=== PATIENT | male | born 1995 | race Caucasian/White ===

== ENCOUNTER 2021-06-08 08:39 | Outpatient (REF) | payer OTHER, SELFPAY ==
--- NOTE | ~2021-06-08 | US_ITS ---
EXAMINATION: US RETROPERITONEAL LIMITED (RENAL ONLY) CLINICAL INFORMATION: Calculus of kidneys. COMPARISON: Renal ultrasound 01/09/2020 TECHNIQUE: Real-time imaging of the kidneys. FINDINGS: RIGHT KIDNEY: 10.0 x 3.9 x 5.3 cm (SAG x AP x TRV). The kidney is normal in size, contour, and echogenicity. Renal cortical thickness is normal. There are 3 stones, measuring 4 x 4 x 7 mm in the upper pole, 5 mm in the midpole and 5 mm in the lower pole. No focal parenchymal lesions or hydronephrosis. LEFT KIDNEY: 10.4 x 4.9 x 6.5 cm (SAG x AP x TRV). The kidney is normal in size, contour, and echogenicity. Renal cortical thickness is normal. There are 2 stones measuring 3 mm in the upper pole and 5 mm in the midpole. No focal parenchymal lesions or hydronephrosis. US/US renal BI IMPRESSION: Bilateral renal stones.
[2021-06-08 11:42] LABS: MANUAL DIFF FLAG NO
[2021-06-08 12:01] LABS: Basophils Percent Auto 0.6 % (0-2); Eosinophils Absolute Auto 0.3 X10*3/uL (0.0-0.4); Eosinophils Percent Auto 4.7 % (0-4); Hematocrit 46.2 % (42.0-52.0); Hemoglobin 15.8 g/dl (14.0-18.0); Imm Gran Abs Auto 0.02 X10*3/uL (0.00-0.03); Imm Gran Pct Auto 0.3 % (0.0-0.4); Lymphocytes Absolute Auto 1.7 X10*3/uL (1.2-4.9); Lymphocytes Percent Auto 27.4 % (20-40); Mean Corpuscular HGB Conc 34.2 g/dl (31.0-36.0); Mean Corpuscular Hemoglobin 32.8 pg (27.0-33.0); Mean Corpuscular Volume 95.9 fL (80.0-98.0); Mean Platelet Volume 9.4 fL (9.4-12.4); Monocytes Absolute Auto 0.5 X10*3/uL (0.1-1.2); Monocytes Percent Auto 7.4 % (2-11); Neutrophils Absolute Auto 3.8 x10*3/uL (2.0-8.3); Neutrophils Percent Auto 59.6 % (45-73); Platelet Count 293 X10*3/uL (160-400); Red Blood Count 4.82 X10*6/uL (4.60-5.80); Red Cell Distribution Width 12.3 % (11.0-16.0); White Blood Count 6.4 X10*3/uL (4.8-10.8)
[2021-06-08 12:28] LABS: Thyroid Stimulating Hormone 0.93 uIU/mL (0.32-4.0)
[2021-06-08 12:34] LABS: Alanine Aminotransferase 16 U/L (0-40); Albumin Level 4.6 g/dL (3.5-5.0); Alkaline Phosphatase 44 U/L (39-117); Anion Gap 14 (12-20); Aspartate Amino Transferase 17 U/L (5-37); Bilirubin Total 0.8 mg/dL (0.0-1.0); Blood Urea Nitrogen 15 mg/dL (9-16); Calcium 9.7 mg/dL (8.4-10.2); Carbon Dioxide 24 mmol/L (22-29); Chloride 108 mmol/L (96-108); Cholesterol 149 mg/dL; Estimated Glomerular Filt Rate > 60; Glucose Random 89 mg/dL (60-115); HDL Cholesterol 45 mg/dL; LDL Cholesterol Calculated 87 mg/dl; Potassium 4.8 mmol/L (3.3-5.1); Sodium 141 mmol/L (135-145); Total Protein 7.2 g/dL (6.5-8.0); Triglycerides 86 mg/dL
[2021-06-08 12:55] LABS: Folate 9.7 ng/mL (> or = 4.0); Vitamin B12 409 pg/mL (200-900)
== END 2021-06-08 08:40 | disposition home or self-care (01) ==
LOC: HO.HMGCX 08:39
PROVIDERS: PCP Internal Medicine; Visit Provider Internal Medicine
DX: R11.2 Nausea with vomiting, unspecified (principal); R68.81 Early satiety
CPT/HCPCS: 36415; 76775; 80053; 80061; 82607; 82746; 84439; 84443; 85025

== ENCOUNTER → 2021-09-03 10:02 | Outpatient (BNVA) | payer OTHER, SELFPAY | PROVIDERS: PCP Internal Medicine | DX: N20.0 Calculus of kidney (principal) | CPT/HCPCS: 99202 ==

== ENCOUNTER 2021-11-23 08:54 | Outpatient (REF) | payer OTHER, SELFPAY ==
--- NOTE | ~2021-11-23 | US_ITS ---
EXAMINATION: US RETROPERITONEAL LIMITED (RENAL ONLY) CLINICAL INFORMATION: Calculus of kidney. COMPARISON: Renal ultrasound 06/08/2021, renal ultrasound 01/09/2020 TECHNIQUE: Real-time imaging of the kidneys. FINDINGS: RIGHT KIDNEY: 10.3 x 4.7 x 5.7 cm (SAG x AP x TRV). The kidney is normal in size, contour, and echogenicity. Renal cortical thickness is normal. No focal parenchymal lesions or hydronephrosis. Nonobstructing right renal stones not significantly changed from prior measuring up to 0.8 cm, previously 0.7 cm in the upper pole. LEFT KIDNEY: 11.3 x 4.5 x 6.5 cm (SAG x AP x TRV). The kidney is normal in size, contour, and echogenicity. Renal cortical thickness is normal. No focal parenchymal lesions or hydronephrosis. Nonobstructing renal stones which appear increased in number compared to prior now with 2 new 0.3 cm stones, the largest stone seen measuring up to 0.5 cm, previously 0.6 cm. US/US renal BI IMPRESSION: Bilateral nonobstructing renal stones which on the right appears similar to prior measuring up to 0.9 cm and on the left appear increased in number with 2 new nonobstructing stones measuring 0.3 cm, and the largest renal stone measuring 0.5 cm.
== END 2021-11-23 08:55 | disposition home or self-care (01) ==
LOC: HO.HMGCX 08:54
PROVIDERS: PCP Internal Medicine; Visit Provider Internal Medicine
DX: N20.0 Calculus of kidney (principal)
CPT/HCPCS: 76775

== ENCOUNTER → 2021-12-01 08:52 | Outpatient (BNVA) | payer OTHER, SELFPAY | PROVIDERS: PCP Internal Medicine | DX: Z13.89 Encounter for screening for other disorder (principal) ==

== ENCOUNTER → 2022-01-21 12:03 | Outpatient (BNVA) | payer OTHER, SELFPAY | PROVIDERS: PCP Internal Medicine; Visit Provider Urology | DX: N20.0 Calculus of kidney (principal) | CPT/HCPCS: 99212 ==

== ENCOUNTER 2022-02-01 07:49 | Day surgery (SDC) | payer OTHER, SELFPAY ==
[2022-01-26 13:12] VITALS: BMI 30.4
--- NOTE | 2022-01-29 12:21 | HO.ANESPROP2 ---
Documented by User: Rebekah Payton NP 01/29/22 12:21 HPI - Anesthesia Eval Consult details Narrative: 26yo M for Right Cystoscopy, Ureteroroscopy, Retro, Laser possible stent PMFSH Active Problems Active Problems: All Active Problems (Updated 06/08/21 @ 19:35 by Godwin Pisano MD) Rectal bleed (Acute) Annual physical exam (Acute) Obesity (BMI 30-39.9) (Acute) Bilateral renal stones (Acute) Past Medical History Medical History Bilateral renal stones Epididymal cyst Obesity (BMI 30-39.9) Polysubstance abuse Family History Family History Maternal Grandmother Cholangiocarcinoma Surgical History Surgical History H/O hand surgery History of tonsillectomy and adenoidectomy Social History Social History (Updated 01/26/22 @ 13:11 by Azra Fischer RN) Housing: Apartment Alcohol intake: current Patient Tobacco Use Status: Former Tobacco user Quit Date: 2017 e-Cigarette/Vaping Use: Never Used Second Hand Smoke Exposure: Yes Substance Use Type Other:: last was hs Substance Use Frequency: Chronic Longstanding Are you DNR?: No Advance Directives: No Advance Directives Information Provided: Yes Advance Directives on File: No Nutrition Risks: No Nutritional Risk Current occupational status: employed Meds Allergies Allergy/AdvReac Type Severity Reaction Status Date / Time No Known Allergies Allergy Verified 02/01/22 08:42 Home Medications Medication Instructions Recorded Confirmed Last Taken Type acetaminophen 325 mg capsule 325 mg PO QID PRN Pain 05/12/21 01/26/22 Unknown History naproxen sodium 220 mg tablet 220 mg PO BID PRN Pain 05/12/21 01/26/22 Unknown History (Aleve) Exam Exam Date and Time: January 29, 2022 122 Height,Weight and Vital Signs: Height 5 ft 7 in Weight 87.997 kg Assessment and Plan Assessment Anesthesia Assessment: Chart Reviewed Documented by User: Ron Vasquez MD 02/01/22 10:43 PMFSH Past Medical History Medical History Bilateral renal stones Epididymal cyst Obesity (BMI 30-39.9) Polysubstance abuse Family History Family History Maternal Grandmother Cholangiocarcinoma Family history of problems with anesthesia: No Surgical History Surgical History H/O hand surgery History of tonsillectomy and adenoidectomy History of Problems with Anesthesia: No Social History Social History (Updated 01/26/22 @ 13:11 by Azra Fischer RN) Housing: Apartment Alcohol intake: current Patient Tobacco Use Status: Former Tobacco user Quit Date: 2017 e-Cigarette/Vaping Use: Never Used Second Hand Smoke Exposure: Yes Substance Use Type Other:: last was hs Substance Use Frequency: Chronic Longstanding Are you DNR?: No Advance Directives: No Advance Directives Information Provided: Yes Advance Directives on File: No Nutrition Risks: No Nutritional Risk Current occupational status: employed Meds Allergies Allergy/AdvReac Type Severity Reaction Status Date / Time No Known Allergies Allergy Verified 02/01/22 08:42 Home Medications Medication Instructions Recorded Confirmed Last Taken Type acetaminophen 325 mg capsule 325 mg PO QID PRN Pain 05/12/21 01/26/22 Unknown History naproxen sodium 220 mg tablet 220 mg PO BID PRN Pain 05/12/21 01/26/22 Unknown History (Aleve) Exam Airway Mallampati Class: III TM Dist: >3cm Neck ROM: Full Loose/Missing/Broken Teeth: Yes Heart: rrr Lungs: clear Assessment and Plan Final Anesthetic Review Family History of Problems with Anesthesia: No History of Problems with Anesthesia: No NPO: Yes ASA Class: II Final Preanesthetic Review: No Changes in Pt Med Stat, Meds/Allgs Chart Reviewed, Consent Obtained/Reviewed and Anes Risks/Benef Reviewed Patient Risk: Intermediate Procedure Risk: Low Anesthetic Plan Anesthetic Plan: GA Disposition: Standard PACU
[2022-02-01] VITALS (7 sets, daily range): BP systolic 109–145; BP diastolic 55–77; PULSE 48–57; RESP 11–18; TEMP 36.1–36.6; O2SAT 99–100
--- NOTE | ~2022-02-01 | FL_ITS ---
EXAMINATION: XR FLUOROSCOPY WITH IMAGES CLINICAL INFORMATION: Right kidney stone COMPARISON: November 23, 2021 ultrasound TECHNIQUE: Fluoroscopy performed by Dr. Owen. Fluoroscopy time: 20.1 seconds. Cumulative Dose: 6.23 mGy. Images: 2. FINDINGS: 2 images demonstrate a right ureteral stent in place. FL/FL guidance in OR IMPRESSION: Fluoroscopy for urologic procedure.
[2022-02-01] MEDS: Lactated Ringers 1,000 ML 100 ML IVCONT (09:29)
[2022-02-01] MEDS: levoFLOXacin 500 MG TABLET PO (09:58)
[2022-02-01] MEDS: Acetaminophen 325 MG TABLET 650 MG PO (09:58)
--- NOTE | 2022-02-01 10:33 | MHC.SHP ---
Pre-Procedural Eval Section A Date of Service: 02/01/22 The patient is an INPATIENT: No Changes since office visit: No Cold of Flu in the past 2 weeks, No New Medical Problems, No Changes in Medication and No Patient answered all questions The History & Physical has been completed within 30 days and I have reviewed it.: Yes Section B Chief Complaint: kidney stone Details of Present Illness: cystoscopy, right retrograde, right ureteroscopy with laser lithotripsy and stent placement Allergies: Allergies Allergy/AdvReac Type Severity Reaction Status Date / Time No Known Allergies Allergy Verified 02/01/22 08:42 Review of Systems Sugical H&P ROS: Negative: Constitution, Cardiovascular, Respiratory, Neurological, Psychiatric, Hem-Onc, Allergic/Immunologic, Gastrointestinal, Genitourinary, Musculoskeletal, Integumentary, Endocrine and Eyes/Ears/Nose/Throat Exam Surgical H&P Exam: Normal: HEENT, Normal: Heart, Normal: Lungs, Normal: Extremities, Normal: Abdomen, Normal: Skin and Normal: Neurological Plan Diagnosis/Plan: Unchanged ( right side) I have reviewed the history and physical and performed a pertinent physical examination on my patient. No changes have occurred unless specified.
[2022-02-01 10:39] LABS: Amphetamine Screen Urine Not Detected (Not Detect); Barbiturates, Urine Not Detected (Not Detect); Benzodiazepines Screen Urine Not Detected (Not Detect); Cannabinoid Screen Urine POSITIVE (Not Detect); Cocaine Screen Urine Not Detected (Not Detect); Fentanyl, urine Not Detected (Not Detect); Opiate Screen Urine Not Detected (Not Detect); Phencyclidine Screen Urine Not Detected (Not Detect)
--- NOTE | 2022-02-01 11:37 | P.OP_ITS ---
Operative Note Operative Note Date of Service: 02/01/22 Narrative: PreOperative Diagnosis: right renal stones Post Operative Diagnosis: right renal stones Procedure: - cystoscopy, right retrograde - right dilatation of ureteric orifice under fluoroscopy - right ureteroscopy, laser lithotripsy, stone basketing - multiple stones on each calyx. Approximately 5 locations. - right stent placement Surgeon: Dr Jose Owen Anesthesia: General Indications for procedure: persistent pain right side with right renal stones on imaging Procedure: After informed consent was verified patient was brought to the operating placed in supine position. Anesthesia was administered per protocol. Patient was placed in modified dorsal lithotomy position and prepped and draped in a sterile fashion. Safety pause time-out and side of surgery confirmed. Antibiotics confirmed. 22 Japanese cystoscope was inserted per urethra. Bladder was normal in its entirety. Both ureteric orifices were in normal position. The right ureteric orifice was cannulated and a retrograde examination was performed. No stone seen. A Sensor guidewire was placed up to the level of the renal pelvis under fluoroscopy. The rigid cystoscope was removed and the inner cannula of ureteric access sheath was used under fluoroscopy to dilate the ureteric orifice. The ureteric access sheath was placed and the inner cannula with access wire removed. The digital flexible ureteral scope was placed. Stones were found in every calcyx on the mucosal surfaces. using a 1.9 Japanese 0 tip basket stones removed from each calyceal apex. These are sent for analysis. We then used the 272 micron laser fiber to break stone remnants on each surface. When this was completed Renal pelvis was irrigated. A 6 Japanese by Twenty-six cm double-J stent was placed into the renal pelvis and bladder under a combination of fluoroscopy and direct visualization using a backloaded cystoscopy. The bladder was emptied. The patient tolerated the procedure well and was extubated in the operating room, and transferred in stable condition to the recovery area. Pathology: Stones Drains: drain
[2022-02-01] MEDS: Phenazopyridine HCL 100 MG TABLET PO (12:07)
[2022-02-06 21:11] LABS: Stone Source KIDNEY STONE
== END 2022-02-01 12:50 | disposition home or self-care (01) ==
PROVIDERS: Nurse Practitioner; PCP Internal Medicine; Visit Provider Urology
PROC: (CPT 52356; principal; 2022-02-01 09:50)
DX: N20.0 Calculus of kidney (principal); Z87.442 Personal history of urinary calculi; N50.3 Cyst of epididymis; E66.9 Obesity, unspecified; F19.10 Other psychoactive substance abuse, uncomplicated; Z79.1 Long term (current) use of non-steroidal anti-inflammatories (NSAID); Z79.899 Other long term (current) drug therapy; Z87.891 Personal history of nicotine dependence
CPT/HCPCS: 52356; 52352; 80307; 82365; 88300; C1758; C1769; C1894; C2617; J1100; J2250; J2405; J3010; Q9967

== ENCOUNTER → 2022-02-09 10:02 | Outpatient (BNVA) | payer OTHER, SELFPAY | PROVIDERS: PCP Internal Medicine; Visit Provider Urology | DX: N20.0 Calculus of kidney (principal) | CPT/HCPCS: 52310; 99212 ==

== ENCOUNTER → 2022-03-09 13:52 | Outpatient (BNVA) | payer OTHER, SELFPAY | PROVIDERS: PCP Internal Medicine; Referring Provider Internal Medicine; Visit Provider Internal Medicine | DX: K62.5 Hemorrhage of anus and rectum (principal); K60.2 Anal fissure, unspecified | CPT/HCPCS: 46600; 99202 ==

== ENCOUNTER 2022-04-12 08:57 | Outpatient (REF) | payer OTHER, SELFPAY ==
--- NOTE | ~2022-04-12 | US_ITS ---
EXAMINATION: US RETROPERITONEAL LIMITED (RENAL ONLY) CLINICAL INFORMATION: Calculus of kidney. COMPARISON: Ultrasound retroperitoneal limited (renal only) 11/23/2021 and 06/08/2021. TECHNIQUE: Real-time imaging of the kidneys. FINDINGS: RIGHT KIDNEY: 10.2 x 4.4 x 6.0 cm (SAG x AP x TRV). The kidney is normal in size, contour, and echogenicity. Renal cortical thickness is normal. No focal parenchymal lesions or hydronephrosis. There are 3 echogenic stones. Lower pole echogenic stones measure 0.2 x 0.2 x 0.2 cm and 0.3 x 0.2 x 0.2 cm and midpole stone measures 0.3 x 0.2 x 0.37. There is no caliectasis. LEFT KIDNEY: 11.3 x 4.9 x 6.2 cm (SAG x AP x TRV). The kidney is normal in size, contour, and echogenicity. Renal cortical thickness is normal. No focal parenchymal lesions or hydronephrosis. There are at least 4 echogenic stones. There are 3 upper pole echogenic stones measuring 0.3 x 0.3 x 0.3 cm, 0.3 x 0.3 x 0.3 cm and 0.4 x 0.3 x 0.4 cm and a midpole echogenic stone measures 0.4 x 0.3 x 0.4 cm. There is no caliectasis. US/US renal BI IMPRESSION: Nonobstructive bilateral echogenic stones. No caliectasis or hydronephrosis.
== END 2022-04-12 08:58 | disposition home or self-care (01) ==
LOC: HO.HMGCX 08:57
PROVIDERS: PCP Internal Medicine; Visit Provider Internal Medicine
DX: N20.0 Calculus of kidney (principal)
CPT/HCPCS: 76775

== ENCOUNTER → 2022-05-11 10:58 | Outpatient (BNVA) | payer OTHER, SELFPAY | PROVIDERS: PCP Internal Medicine; Visit Provider Urology | DX: N20.0 Calculus of kidney (principal) | CPT/HCPCS: 99212 ==

== ENCOUNTER 2022-12-25 09:50 | Emergency (ER) | payer OTHER, SELFPAY ==
--- NOTE | ~2022-12-25 | XR_ITS ---
EXAMINATION: XR RIBS, LEFT with chest x-ray CLINICAL INFORMATION: Fall, left-sided chest pain. COMPARISON: None available. TECHNIQUE: 3 views of the left ribs were obtained with marker placed along the left lower ribs.. Chest PA one view FINDINGS: Chest: The lungs are well-expanded and clear. The heart size and pulmonary vascularity is normal. Multiple views of left ribs reveal no visible fracture or bony abnormality. The soft tissues are normal. XR/XR ribs LT min 3V w CXR1V IMPRESSION: 1. Unremarkable chest exam. 2. Unremarkable left rib exam.
[2022-12-25 09:53] VITALS: BP 139/82; PULSE 64; RESP 18; TEMP 35.9; O2SAT 98; BMI 33.4
--- NOTE | 2022-12-25 10:37 | ED.GENADULT ---
HPI - General Adult General Chief complaint: General Medical Stated complaint: ? Right Rib Fx Work Injury 2 Days Ago Time Seen by Provider: 12/25/22 10:00 Source: patient Mode of arrival: ambulatory Limitations: no limitations History of Present Illness HPI narrative: 27 yo male with history of kidney stones here with complaints of left rib pain after a fall at work 3 days ago hitting his left chest wall on a pallet dori. Patient denies hitting his head or loss of consciousness. He reports pain worsened with movement, deep breathing or coughing. No shortness of breath, abdominal pain, vomiting or diarrhea. Related Data Home Medications Medication Instructions Recorded Confirmed acetaminophen 325 mg capsule 325 mg PO QID PRN Pain 05/12/21 05/31/22 Previous Rx's Medication Instructions Recorded lidocaine 4 % topical gel 1 appl topical TID PRN pain 4 03/09/22 weeks #30 grams psyllium husk 3.4 gram/5.4 gram 1 tbsp PO BID 4 weeks #660 grams 03/09/22 oral powder (Metamucil) allopurinol 100 mg tablet 100 mg PO DAILY 90 days #90 tabs 05/11/22 pyridoxine (vitamin B6) 100 mg 100 mg PO DAILY 90 days #90 tabs 05/11/22 tablet Allergies Allergy/AdvReac Type Severity Reaction Status Date / Time No Known Allergies Allergy Verified 12/25/22 09:55 Review of Systems Review of Systems: Yes all other systems are reviewed and are negative Constitutional: Constitutional: Reports no additional constitutional complaints, Denies body ache(s), Denies chills, Denies fever(s), Denies headache(s) and Denies weakness Eyes: Eyes: Reports no additional eye complaints and Denies change in vision ENT: Reports system reviewed and no additional complaints, except as documented, Denies dizziness, Denies headache(s), Denies nasal congestion, Denies nasal discharge and Denies neck pain Cardiovascular: Cardiovascular: Reports no additional cardiovascular complaints, Reports chest pain, Denies leg edema and Denies dyspnea Respiratory: Respiratory: Reports no additional respiratory complaints, Denies cough and Denies dyspnea Gastrointestinal: Gastrointestinal: Reports no additional gastrointestinal complaints, Denies abdominal pain, Denies diarrhea, Denies nausea and Denies vomiting Genitourinary: Genitourinary: Denies urinary incontinence Musculoskeletal: Musculoskeletal: Reports no additional musculoskeletal complaints, Denies back pain, Denies arthralgias, Denies joint swelling, Denies neck pain, Denies numbness and Denies tingling Integumentary/Breasts: Skin/Breast: Reports system reviewed and no additional complaints, except as docu and Denies rash Neurologic: Reports system reviewed and no additional complaints, except as documented, Denies dizziness, Denies headache(s), Denies numbness, Denies tingling and Denies weakness PMF Past Medical History Attestation statement: The following information was validated with the patient. Source: old records reviewed and nursing notes reviewed Medical History Bilateral renal stones Epididymal cyst Obesity (BMI 30-39.9) Polysubstance abuse Surgical History H/O hand surgery History of tonsillectomy and adenoidectomy Family History Family History Maternal Grandmother Cholangiocarcinoma Maternal Grandfather Prostate cancer Paternal Aunt Breast cancer Social History Social History (Updated 05/31/22 @ 09:04 by Godwin Pisano MD) Housing: Apartment Alcohol intake: current Patient Tobacco Use Status: Former Tobacco user Quit Date: 2017 e-Cigarette/Vaping Use: Never Used Second Hand Smoke Exposure: Yes Advance Directives: No Advance Directives Information Provided: No Current occupational status: employed Cognitive needs: No Hearing needs: No Vision needs: No Physical Exam ED Vital Signs: Vital Signs - 24 hr 12/25/22 09:53 Temperature 96.6 F L Pulse Rate 64 Respiratory Rate 18 Blood Pressure 139/82 Pulse Oximetry 98 Oxygen Delivery Method Room Air BMI result Body Mass Index 33.4 Const General: cooperative, healthy appearing, comfortable and no acute distress Orientation/consciousness: patient oriented x3 Limitations: no limitations HENMT Head: Yes normal to inspection Ears: hearing grossly normal bilaterally Eyes General: appearance normal, both eyes and all related structures Pupils: Equal, round and reactive pupils present Chest Other: Tenderness to left anterior chest wall with no crepitus/ecchymosis or deformity Chest palpation & inspection: normal inspection of the chest Resp Effort & Inspection: normal respiratory effort Auscultation: clear to auscultation bilaterally Cardio Rate: regular rate Rhythm: regular rhythm Peripheral pulses: Peripheral pulses 2+ throughout GI Inspection: Yes normal to inspection Palpation (GI): Soft to palpation and nontender General: Yes no CVA tenderness Back/Spine/Pelvis Back: no CVA tenderness Thoracic/Lumbar Spine: thoracic and lumbar spine normal to inspection Skin General skin exam: no rashes or lesions noted Neuro General: patient oriented x3 and moves all extremities Cranial nerves: Yes Equal, round and reactive pupils present Cognition (Neuro): normal cognition Gait exam (Neuro): Normal gait present Extrem General: Yes normal to inspection, Yes no pedal edema and Yes no calf tenderness Course Course Course Narrative: X-ray show no acute fracture. Likely contusion. Recommend supportive care at home. Reviewed worrisome signs and symptoms of when to return to the emergency room. Comfortable plan for discharge home. Medical Decision Making Medical Decision Making [facility] Narrative: 27 yo male here with complaints of left chest wall tenderness afer a fall 3 days ago. LS CTA Abdomen soft/nontender Will check x-rays Differential Diagnosis Differential Diagnoses: The differential diagnosis associated with the presentation includes Fracture, contusion Low concern for pneumothorax or intra-abdominal pathology Independent Interpretation I performed an independent interpretation of an: Plain X-Ray Interpretation: I independetely reviewed x-ray and agree with radiologist's report Radiology Impression Discussion of test interpretation with radiology: I have reviewed the radiologist's reading. Radiologist Impression: [place] [id number] XRay Report Signed Patient: Usman Meadows MR#: [id number] : 1995 Acct:[id number] Age/Sex: 27 / M ADM Date: 12/25/22 Loc: HO.ED Attending Dr: Ordering Physician: Alize Mcghee NP Date of Service: 12/25/22 Procedure(s): XR ribs LT min 3V w CXR1V Accession Number(s): [id number] cc: Alize Mcghee NP~ EXAMINATION: XR RIBS, LEFT with chest x-ray CLINICAL INFORMATION: Fall, left-sided chest pain. COMPARISON: None available. TECHNIQUE: 3 views of the left ribs were obtained with marker placed along the left lower ribs.. Chest PA one view FINDINGS: Chest: The lungs are well-expanded and clear. The heart size and pulmonary vascularity is normal. Multiple views of left ribs reveal no visible fracture or bony abnormality. The soft tissues are normal. XR/XR ribs LT min 3V w CXR1V IMPRESSION: 1.? Unremarkable chest exam. 2.? Unremarkable left rib exam. ? Discharge Plan Discharge Clinical Impression: Contusion of rib on left side Patient Disposition: Home, Self-Care Instructions: Contusion in Adults (ED), Rib Contusion (ED) Prescriptions: No Action acetaminophen 325 mg capsule 325 mg PO QID PRN (Reason: Pain) pyridoxine (vitamin B6) 100 mg tablet 100 mg PO DAILY 90 Days Qty: 90 1RF allopurinol 100 mg tablet 100 mg PO DAILY 90 Days Qty: 90 1RF lidocaine 4 % gel 1 appl topical TID PRN (Reason: pain) 28 Days Qty: 30 1RF Metamucil 3.4 gram/5.4 gram powder 1 tbsp PO BID 28 Days Qty: 660 0RF Rx Instructions: mix into at least 8 oz of water or juice before administering
== END 2022-12-25 11:47 | disposition home or self-care (01) ==
PROVIDERS: Emergency Provider Emergency Medicine; PCP Internal Medicine
DX: S20.212A Contusion of left front wall of thorax, initial encounter (principal); W22.09XA Striking against other stationary object, initial encounter; Y93.89 Activity, other specified; Y92.89 Other specified places as the place of occurrence of the external cause; Y99.0 Civilian activity done for income or pay
CPT/HCPCS: 71101; 99282; 99283